=== PATIENT | male | born 1940 | race Caucasian/White ===

== ENCOUNTER 2020-06-28 01:31 | Outpatient (CLI) | payer OTHER, SELFPAY ==
--- NOTE | 2020-06-28 | DI.US_ITS ---
APPROVED REPORT EXAM: Comprehensive 2D, Doppler, and color-flow Echocardiogram Patient Location: Out-Patient Payroll Clerk: Mallory Gonzalez RDCS (AE) Indications: Diabetes, Ischemic heart disease Other Information Study Quality: Adequate Conclusion Left Ventricle : The left ventricle is normal size. The left ventricular systolic function is normal. The left ventricular ejection fraction is within the normal range. There is normal left ventricular wall thickness. There is normal LV segmental wall motion. LVEF is 58%. Right Ventricle : The right ventricle is normal size. The right ventricular systolic function is norm al. Atria : The left atrium size is normal. The right atrium size is normal. Valves: There are no hemodynamically significant valvular lesions. Great Vessels : The aortic root is normal in size. The ascending aorta is mildly dilated. Aortic arch is normal in caliber. Due to poor image quality, the IVC could not be assessed. Please see remainder of study for further details. Wall motion Left Ventricle The left ventricle is normal size. The left ventricular systolic function is normal. The left ventric ular ejection fraction is within the normal range. There is normal left ventricular wall thickness. T here is normal LV segmental wall motion. There is no ventricular septal defect visualized. LVEF is 58 %. Right Ventricle The right ventricle is normal size. The right ventricular systolic function is normal. Atria The left atrium size is normal. The right atrium size is normal. The interatrial septum is intact wit h no evidence for an atrial septal defect. Aortic Valve Aortic valve is calcified. The Aortic valve is sclerotic. Aortic valve is trileaflet. No hemodynamica lly significant valvular aortic stenosis. Trace aortic regurgitation. Mitral Valve Mild mitral annular calcification. No evidence of mitral valve stenosis. Trace to mild mitral regurgi tation. Tricuspid Valve The tricuspid valve is normal in structure. Trace tricuspid regurgitation. Pulmonic Valve The pulmonary valve is normal in structure. There is no pulmonic valvular stenosis. Trace pulmonic re gurgitation. Great Vessels The aortic root is normal in size. The ascending aorta is mildly dilated. Aortic arch is normal in ca liber. Due to poor image quality, the IVC could not be assessed. Pericardium There is no pericardial effusion. 2D Dimensions IVSD d PLAX 1.16 cm M: 0.6-1.2 LV Vol A2C d MOD 90.9 mL LVPW d PLAX 1.14 cm M: 0.6 - 1.2 LV Vol A4C d MOD 106.3 mL LVID d PLAX 5.13 cm M: 4.2 - 5.8 LA vol/ BSA A2C s A-L 26.9 mL/m2 LVDs 3.30 cm M: 2.5 - 4.0 LA vol/ BSA A4C s A-L 18.4 mL/m2 Ao Root d 3.49 cm M: 3.1 - 3.7 LA Vol/ BSA Biplane s A-L 22.5 mL/m2 RA Area A4C 10.68 cm2 LA Area A4C s MOD 16.54 cm2 RA Vol/ BSA A4C s A-L 11.0 mL/m2 LA Area A2C s MOD 20.23 cm2 Ao Asc Diam d 3.68 cm M: 2.6 - 3.4 LV EF A4C MOD 57.9 % LV EF Teichholz 64.5 % LV EF A2C MOD 58.9 % LVEF (Curry's) 58.18 % M: 52 - 72 LV EF Biplane MOD 58.2 % LV Volume 71.85 mL M: 62 - 150 SV 58.13 mL LV Volume Index 31.51 mL/m2 M: 34 - 74 SV Index 25.48 mL/m2 LV Vol Biplane MOD 99.9 mL FS 35.40 % M-Mode TAPSE 1.77 cm (M/F) >1.7 LV Diastology E/A Ratio 0.6 MV E Vmax 0.50 (0.4-1.3 m/s) MV A Vmax 0.80 (0.4-1.3 m/s) MV E/A Ratio 0.59 Aortic Valve LVOT Area 3.59 cm2 AoV Area Vmax 1.86 cm2 LVOT Vmax 1.17 m/s AoV Area/ BSA (Vmax) 0.82 cm2/m2 LVOT Mean Anurag. 0.77 m/s REX Mean Anurag. 1.78 cm2 LVOT Peak Grad 5.4 mmHg REX Mean Anurag. Index 0.78 cm2/m2 LVOT Mean Grad 2.8 mmHg LVOT VTI 0.238 m LVOT Diam s 2.10 cm AoV Vmax 2.24 m/s Velocity Ratio 0.52 AoV Mean Anurag. 1.55 m/s AoV Peak Grad 20.1 mmHg LVOT SV 85.50 mL AoV Mean Grad 10.8 mmHg AoV VTI 0.411 m AoV Area VTI 2.08 cm2 AoV Area/ BSA (VTI) 0.91 cm/m2 Mitral Valve MV DT 347 (160-240 msec) MV PHT 101 msec MV Area PHT 2.19 cm2 MV VTI 0.289 m MV VTI Annulus 0.282 m MV Area VTI 2.89 (4.0-6.0 cm2) Pulmonary Valve PV Vmax 1.08 (0.5-1.5 m/s) RVOT Peak Gr. 2.15 mmHg PV Peak Grad 4.7 mmHg RVOT Mean Gr. 1.05 mmHg PV Mean Grad 2.2 mmHg RVOT VTI 0.129 m PV VTI 0.185 m RVOT Vmax 0.73 m/s Tricuspid Valve TR Peak Grad 22.5 mmHg TR Vmax 2.38 m/s
== END 2020-06-28 01:51 ==
PROVIDERS: Visit Provider Orthopaedic Surgery
DX: I77.810 Thoracic aortic ectasia (principal)
CPT/HCPCS: 93306

== ENCOUNTER 2020-06-28 02:40 | Outpatient (CLI) | payer OTHER, SELFPAY ==
[2020-06-28 10:34] LABS: Bilirubin Negative (Negative); Blood Negative (Negative); Clarity Clear (Clear); Glucose Negative (Negative); Ketones Negative (Negative); Leukocyte Esterase Negative (Negative); Nitrite Negative (Negative); Specific Gravity >= 1.030 (1.005-1.025); Urobilinogen 0.2 EU/dL (Up TO 0.2); pH 5.5 (5-8)
[2020-06-28 11:32] LABS: ALT 35 U/L (16-63); AST 18 U/L (15-37); Albumin 4.1 g/dL (3.4-5.0); Alkaline Phosphatase 111 U/L (46-116); Anion Gap 8.6 mmol/L (3-11); BUN 13 mg/dL (7-18); Bilirubin, Total 1.6 mg/dL (0.2-1.0); CO2 29.4 mmol/L (21.0-32.0); CREATININE 1.02 mg/dL (0.70-1.30); Calcium 9.4 mg/dL (8.5-10.1); Chloride 107 mmol/L (98-107); Glucose 129 mg/dL (74-106); Sodium 145 mmol/L (136-145); Total Protein 7.2 g/dL (6.4-8.2)
== END 2020-06-28 03:00 ==
PROVIDERS: Visit Provider Orthopaedic Surgery
DX: E11.9 Type 2 diabetes mellitus without complications (principal); I25.9 Chronic ischemic heart disease, unspecified
CPT/HCPCS: 36415; 80053; 81003